=== PATIENT | male | born 1965 | race Caucasian/White ===

== ENCOUNTER 2017-06-12 16:58 | Emergency (ER) | payer OTHER, SELFPAY ==
[~2017-06-12] VITALS: Ht 182.9 cm; Wt 96.9 kg
[2017-06-12] MEDS ORDERED: ASPIRIN 81 MG TABLET CHEW ONE ×2 (17:26)
[2017-06-12] MEDS ORDERED: ASPIRIN 81 MG TABLET CHEW PO ONE (17:30)
[2017-06-12 17:39] LABS: BASOPHILS # (AUTO) 0.03 x10^3/uL (0-0.1); BASOPHILS % (AUTO) 0 % (0-1); EOSINOPHILS # (AUTO) 0.24 x10^3/uL (0-0.4); EOSINOPHILS % (AUTO) 4 % (1-7); LYMPHOCYTES % (AUTO) 28 % (22-44); MD NO; MEAN CORPUSCULAR HEMOGLOBIN 32.7 pg (27.5-34.5); MEAN CORPUSCULAR HGB CONC 34.4 g/dL (33.2-36.2); MEAN CORPUSCULAR VOLUME 94.9 fL (81-97); MEAN PLATELET VOLUME 9.4 fL (7.4-10.4); MONOCYTES # (AUTO) 0.41 x10^3/uL (0.2-0.8); MONOCYTES % (AUTO) 6 % (2-9); NEUTROPHILS # (AUTO) 4.33 x10^3/uL (1.8-6.8); NEUTROPHILS % (AUTO) 63 % (42-75); PLATELET COUNT 203 x10^3/uL (130-400); RED BLOOD COUNT 5.01 x10^6/uL (4.38-5.82)
[2017-06-12 17:50] LABS: ALANINE AMINOTRANSFERASE 45 U/L (12-78); ALBUMIN 3.9 g/dL (3.4-5.0); ANION GAP 4 mmol/L (5-15); CALCIUM 7.6 mg/dL (8.5-10.1); CHLORIDE 107 mmol/L (98-107)
[2017-06-12 17:54] LABS: ALKALINE PHOSPHATASE 49 U/L (45-117); BILIRUBIN,TOTAL 0.4 mg/dL (0.2-1.0); TOTAL PROTEIN 7.5 g/dL (6.4-8.2); TROPONIN I < 0.015 ng/mL (0.000-0.045)
[2017-06-12] MEDS ORDERED: NITROGLYCERIN SINGLE TAB 0.4 MG SL PRN (18:00)
[2017-06-12] MEDS ORDERED: NITROGLYCERIN SINGLE TAB 0.4 MG SL ONE (18:45)
[2017-06-12 20:28] VITALS: BP 136/68
[2017-06-12] MEDS ORDERED: NITROGLYCERIN 0.4 MG BOTTLE (25 TABS) SL PRN (20:30)
[2017-06-12] MEDS ORDERED: morphine SULFATE 10 MG/ML, 1ML IVPush PRN (20:30)
[2017-06-12] MEDS ORDERED: ONDANSETRON 2MG/ML, 2ML IVPush PRN (20:30)
[2017-06-12] MEDS ORDERED: HEPARIN 5,000 UNITS/ML, 1ML SQ SCH (20:30)
[2017-06-12] MEDS ORDERED: BISACODYL 10 MG SUPP PR PRN (20:30)
[2017-06-12] MEDS ORDERED: ONDANSETRON ODT 4 MG PO PRN (20:30)
[2017-06-12] MEDS ORDERED: PROMETHAZINE 25 MG/ML, 1ML IM PRN (20:30)
[2017-06-12] MEDS ORDERED: ACETAMINOPHEN 325 MG TABLET PO PRN (20:30)
[2017-06-12] MEDS ORDERED: DOCUSATE 100 MG CAPSULE PO PRN (20:30)
[2017-06-12 20:53] LABS: TROPONIN I < 0.015 ng/mL (0.000-0.045)
[2017-06-12 20:58] LABS: HEMOGLOBIN A1C 5.3 % (4.2-6.3)
[2017-06-13] MEDS ORDERED: ASPIRIN 325 MG TABLET EC PO SCH (06:00)
[2017-06-13] MEDS ORDERED: SENNA/DOCUSATE TABLET PO SCH (09:00)
== END 2017-06-12 21:32 | disposition left against medical advice (07) ==
LOC: ED 18:35 → EDIP 20:18 → UNDOADMIN 20:18 → ED 21:32
DX: R07.9 Chest pain, unspecified (principal); R06.00 Dyspnea, unspecified
CPT/HCPCS: 36415; 71010; 80053; 82330; 83036; 84484; 85025; 93005; 99285